=== PATIENT | female | born 1945 | race Caucasian/White ===

== ENCOUNTER → 2024-01-23 12:58 | Outpatient (REF) | payer MEDICARE, SELFPAY | LOC: DHVS 12:58 | PROVIDERS: ATTENDING PHYSICIAN Registered Nurse | DX: I73.9 Peripheral vascular disease, unspecified (principal) | CPT/HCPCS: 93922 ==

== ENCOUNTER → 2024-02-26 13:02 | Outpatient (REF) | payer MEDICARE, SELFPAY | LOC: HWWDC 13:02 | PROVIDERS: ATTENDING PHYSICIAN Family Medicine | DX: Z12.31 Encounter for screening mammogram for malignant neoplasm of breast (principal) | CPT/HCPCS: 77063; 77067 ==

== ENCOUNTER → 2024-03-08 12:45 | Outpatient (REF) | payer MEDICARE, SELFPAY | LOC: HWRCS 12:45 | PROVIDERS: ATTENDING PHYSICIAN Internal Medicine Interventional Cardiology; FAMILY PHYSICIAN Family Medicine | DX: I34.0 Nonrheumatic mitral (valve) insufficiency (principal); Z77.22 Contact with and (suspected) exposure to environmental tobacco smoke (acute) (chronic) | CPT/HCPCS: 71046; 93306 ==

== ENCOUNTER → 2024-03-26 13:22 | Outpatient (REF) | payer MEDICARE, SELFPAY | LOC: HWRAD 13:22 | PROVIDERS: ATTENDING PHYSICIAN Family Medicine | DX: Z13.820 Encounter for screening for osteoporosis (principal); Z78.0 Asymptomatic menopausal state | CPT/HCPCS: 77080 ==

== ENCOUNTER → 2024-04-10 13:34 | Outpatient (REF) | payer MEDICARE, SELFPAY | LOC: HWRAD 13:34 | PROVIDERS: ATTENDING PHYSICIAN Internal Medicine Nephrology; FAMILY PHYSICIAN Family Medicine | DX: N20.0 Calculus of kidney (principal) | CPT/HCPCS: 74176 ==

== ENCOUNTER 2024-04-17 13:38 | Outpatient (RCR) | payer MEDICARE, SELFPAY | END 2024-04-17 23:59 | disposition home or self-care (01) | LOC: RPT 13:38 | PROVIDERS: ATTENDING PHYSICIAN Family Medicine | DX: I89.0 Lymphedema, not elsewhere classified (principal); Z73.6 Limitation of activities due to disability; R26.2 Difficulty in walking, not elsewhere classified | CPT/HCPCS: 97163; 97535; 97760 ==

== ENCOUNTER 2024-05-31 06:25 | Day surgery (SDC) | payer MEDICARE, SELFPAY ==
[2024-05-31 10:27] VITALS: BMI 45.1
[2024-05-31 10:29] VITALS: BP 174/63; BMI 45.1
[2024-05-31 11:50] VITALS: BP 111/50
[2024-05-31 12:01] VITALS: BP 120/63
[2024-05-31 12:15] VITALS: BP 128/91
== END 2024-05-31 12:35 | disposition home or self-care (01) ==
LOC: GI 06:25
PROVIDERS: ATTENDING PHYSICIAN Internal Medicine Gastroenterology
DX: K22.89 Other specified disease of esophagus (principal); K44.9 Diaphragmatic hernia without obstruction or gangrene; K31.89 Other diseases of stomach and duodenum; K31.7 Polyp of stomach and duodenum; R12 Heartburn; R19.7 Diarrhea, unspecified
CPT/HCPCS: 43239; 88305; 88342

== ENCOUNTER 2024-06-06 12:49 | Outpatient (RCR) | payer MEDICARE, SELFPAY | END 2024-06-06 23:59 | disposition home or self-care (01) | LOC: RPT 12:49 | PROVIDERS: ATTENDING PHYSICIAN Family Medicine | DX: I89.0 Lymphedema, not elsewhere classified (principal); Z73.6 Limitation of activities due to disability | CPT/HCPCS: 97535 ==

== ENCOUNTER 2024-06-22 10:11 | Emergency (ER) | payer MEDICARE, SELFPAY ==
[2024-06-22 10:13] VITALS: BP 152/62
--- NOTE | 2024-06-22 10:49 | ED.GENMED ---
History of Present Illness
General
Chief Complaint: Headache
Time Seen by Provider: 06/22/24 10:36
History of Present Illness
History of Present Illness:
Patient presents to the emergency department left-sided headache. Headache has been ongoing for the past month. Pain is tender when she touches the left side of her head. She reports chronic changes in vision which she relates to macular
degeneration. She also has an infected tooth in the left upper molar which she is getting a root canal for this week. Denies fevers or chills. Denies vomiting. Denies head trauma. Denies double vision. Denies jaw claudication
Past History
Past History
ED Past Medical History: Cancer, GERD, HTN and Other (Lung cancer, vulvar melanoma, peptic ulcer disease, diverticulitis with colon resection)
ED Past Surgical History: Bowel resection, Cholecystectomy, Gynecological (vulvectomy with lymph node removal) and Other (Left upper lobectomy,thyroidectomy)
Social History
Tobacco: Non-smoker
Alcohol: None
Drug: None
Personal:
Living: alone
Employment: Retired
Family History
Family History: Other (Sister with palpitations)
Phy Exam
Physical Exam
Physical Exam:
GENERAL APPEARANCE: NAD, well developed/ well nourished
EYES lids/conjunctiva normal
EARS/NOSE/THROAT Mucous membranes moist, tooth number 15 decayed, no palpable abscess appreciated. uvula midline without oral pharyngeal erythema, exudate or swelling
HEAD/NECK tenderness to left temporal region. There is no palpable abnormality. There is no visible abnormality. Normocephalic atraumatic, neck is supple. No carotid bruits
RESPIRATORY respiratory effort normal, speaks in full sentences, no accessory muscle use. Lungs clear to auscultation without rhonchi, wheezes, rales
CARDIAC Regular rate and rhythm, no edema.
ABDOMINAL Soft, ND/NT. No pulsatile masses on exam, rebound tenderness, Shankar sign or pain over Mcburney's point.
MUSCLES/EXTREMITIES No abnormal range of motion, no swelling.
SKIN Warm, pink and dry. No rashes
NEUROLOGICAL cranial nerves II through XII intact. Speech is clear and appropriate. Normal level of consciousness. 5/5 strength in all extremities.
PSYCH Normal mood and affect. Judgement/competence is appropriate
Course
Orders/Labs/Results
Orders:
Orders
06/22/24 10:47
CT Head W/o Iv Contrast Urgent
Comment:
Reason For Exam: headache
06/22/24 10:54
Basic Metabolic Panel Urgent
Complete Blood Count/With Diff Urgent
ESR [Erythrocyte Sed Rate] Urgent
Abnormal Lab Results
06/22/24
10:54
Abs Immat Gran (auto) 0.1 H 10^3/uL
(0-0.05)
Immature Gran % 0.6 H %
(0-0.5)
Lymphocytes % 18.0 L %
(20.5-51.1)
ESR 39 H mm/hour
(0-20)
Carbon Dioxide 31 H mmol/L
(22-30)
BUN 29 H mg/dl
(7-17)
Creatinine 1.4 H mg/dL
(0.6-1.0)
Glucose 121 H mg/dl
(70-99)
06/22/24 10:54
06/22/24 10:54
Vital Signs
Initial and Last Documented VS:
Initial Vital Signs
Temp Pulse Resp BP Pulse Ox
98.5 F 67 18 152/62 98
06/22/24 10:13 06/22/24 10:13 06/22/24 10:13 06/22/24 10:13 06/22/24 10:13
Last Documented Vital Signs
Temp Pulse Resp BP Pulse Ox
98.5 F 67 18 152/62 98
06/22/24 10:13 06/22/24 10:13 06/22/24 10:13 06/22/24 10:13 06/22/24 10:13
*Critical Care Note
Total Time (30-74mins, 75-104mins- exclusive of procedures): Not Applicable
ED Attending Note
ED Attending Note
ED Attending Note:
patient with 1 month of headache to L side of head
no neurologic deficits
doubt SAH given chronicity, no thunderclap
suspect this is possible related to dental infection with radiation of pain
there is no swelling/fevers to suggest spreading abscess
patient on penicillin currently, has close follow up
considered GCA, no jaw claudication, no fevers/constitutional symptoms, ESR <50 making this less likely
instructed to fu with her primary if headache persists after dental repair
-
Portions of this chart may have been created with voice recognition software.� Occasional wrong word or��sound alike� substitutions may have occurred due to the inherent limitations of voice recognition software.
Discharge Plan
Departure
Patient Disposition: Home (Routine Discharge)
Date of Disposition: 06/22/24
Time of Disposition: 11:46
Patient with high blood pressure during this ER visit?: Yes
Discharge Problem:
Headache, Dental infection
Instructions: Headache, Adult (DC)
Prescriptions:
No Action
levothyroxine 175 MCG tablet
175 mcg PO DAILY
metoprolol succinate 50 MG tablet extended release 24 hr
50 mg PO HS
valsartan-hydrochlorothiazide 1 EACH tablet
1 ea PO DAILY
ezetimibe 10 MG tablet
10 mg PO QPM
Co Q-10
1 tab PO DAILY
L.acidoph, paracasei,B. lactis 1 EACH capsule
1 ea PO DAILY Qty: 0
cholecalciferol (vitamin D3) 2,000 UNITS tablet
2,000 units PO DAILY
Alpha Lipoic Acid
1 tab PO DAILY
L-Glutamine 500 MG capsule
500 mg PO DAILY
paricalcitol 1 MCG capsule
1 mcg PO Q48H
Pepcid AC
20 mg HS
Referrals:
Isaac Tinsley, [Family Provider] -
Activity Restrictions/Additional Instructions:
please follow up with your doctor if headaches persist after your dental work this week
we suspect the infected tooth could be causing your headache
return immediately to ER with new or worsening symptoms
Interventions
Interventions:
*Risk Screen - Suicide Last Done: 06/22/24 10:13
*General Assessment Last Done: 06/22/24 10:13
*Neglect/Abuse Screening Last Done: 06/22/24 10:13
ED- Fall Risk Assessment Last Done: 06/22/24 11:04
*ED COVID-19 Vaccine History Last Done: 06/22/24 10:13
*Nursing Disposition Last Done: 06/22/24 11:57
ED- Neurological Assessment Last Done: 06/22/24 11:04
Discharge Date and Time
Discharge Date/Time: 06/22/24 12:03
Print Language: [place]LAND[place]
[2024-06-22 11:11] LABS: % Basophils 0.6 % (0-2); % Eosinophils 2.2 % (0-6); % Immature Granulocytes 0.6 % (0-0.5); % Monocytes 5.4 % (1.7-9.3); % Neutrophils 73.2 % (42.2-75.2); Absolute Basophils 0.1 10^3/uL (0-0.2); Absolute Eosinophils 0.2 10^3/uL (0-0.7); Absolute Immature Granulocytes 0.1 10^3/uL (0-0.05); Absolute Lymphocytes 1.5 10^3/uL (1.2-3.4); Absolute Monocytes 0.5 10^3/uL (0.1-0.6); Absolute Neutrophils 6.2 10^3/uL (1.4-6.5); Hemoglobin 13.7 g/dL (12.0-16.0); Mean Corp Hgb Conc. 33.4 g/dL (33.0-37.0); Mean Corpuscular Volume 89.7 fL (81.0-99.0); Mean Platelet Volume 9.6 fL (7.4-10.4); Nucleated Red Blood Cells % 0 %; Platelet Count 345 10^3/uL (130-400); Red Blood Cell Count 4.57 10^6/uL (4.20-5.40); Red Cell Dist. Width 13.8 % (11.5-14.5); White Blood Cell Count 8.5 10^3/uL (4.8-10.8)
[2024-06-22 11:23] LABS: Blood Urea Nitrogen 29 mg/dl (7-17); Calcium 9.7 mg/dl (8.4-10.2); Carbon Dioxide 31 mmol/L (22-30); Chloride 103 mmol/L (98-107); Glucose 121 mg/dl (70-99); Potassium 4.9 mmol/L (3.5-5.1); Sodium 143 mmol/L (135-145); eGFR 38.75
[2024-06-22 11:32] LABS: Erythrocyte Sed Rate 39 mm/hour (0-20)
== END 2024-06-22 12:03 | disposition home or self-care (01) ==
LOC: EMR 10:11
PROVIDERS: EMERGENCY PHYSICIAN Emergency Medicine; FAMILY PHYSICIAN Family Medicine
DX: R51.9 Headache, unspecified (principal); K04.7 Periapical abscess without sinus; I10 Essential (primary) hypertension; K21.9 Gastro-esophageal reflux disease without esophagitis; K57.92 Diverticulitis of intestine, part unspecified, without perforation or abscess without bleeding; Z98.0 Intestinal bypass and anastomosis status; C51.9 Malignant neoplasm of vulva, unspecified; H35.30 Unspecified macular degeneration; Z85.118 Personal history of other malignant neoplasm of bronchus and lung; Z87.11 Personal history of peptic ulcer disease; Z90.49 Acquired absence of other specified parts of digestive tract; Z90.2 Acquired absence of lung [part of]; Z88.1 Allergy status to other antibiotic agents; Z91.041 Radiographic dye allergy status; Z91.018 Allergy to other foods; Z88.8 Allergy status to other drugs, medicaments and biological substances; Z91.048 Other nonmedicinal substance allergy status
CPT/HCPCS: 99284; 70450; 80048; 85025; 85652

== ENCOUNTER 2024-06-25 13:30 | Outpatient (RCR) | payer MEDICARE, SELFPAY | END 2024-06-25 23:59 | disposition home or self-care (01) | LOC: RPT 13:30 | PROVIDERS: ATTENDING PHYSICIAN Family Medicine | DX: I89.0 Lymphedema, not elsewhere classified (principal); Z73.6 Limitation of activities due to disability | CPT/HCPCS: 97530; 97763 ==

== ENCOUNTER → 2024-07-02 11:16 | Outpatient (REF) | payer MEDICARE, SELFPAY | LOC: HWRAD 11:16 | PROVIDERS: ATTENDING PHYSICIAN Family Medicine; REFERRING PHYSICIAN Internal Medicine Endocrinology, Diabetes & Metabolism | DX: L98.9 Disorder of the skin and subcutaneous tissue, unspecified (principal) | CPT/HCPCS: 76536 ==

== ENCOUNTER → 2024-07-30 17:39 | Outpatient (REF) | payer MEDICARE, SELFPAY | LOC: MRI 17:39 | PROVIDERS: ATTENDING PHYSICIAN Family Medicine | DX: R51.9 Headache, unspecified (principal) | CPT/HCPCS: 70544; 70549; A9585 ==

== ENCOUNTER → 2024-09-12 16:38 | Outpatient (REF) | payer MEDICARE, SELFPAY | LOC: MRI 3T 16:38 | PROVIDERS: ATTENDING PHYSICIAN Internal Medicine Endocrinology, Diabetes & Metabolism; FAMILY PHYSICIAN Family Medicine | DX: R22.1 Localized swelling, mass and lump, neck (principal) | CPT/HCPCS: 70543; A9575 ==

== ENCOUNTER → 2024-11-22 12:36 | Outpatient (REF) | payer MEDICARE, SELFPAY | LOC: HWRAD 12:36 | PROVIDERS: ATTENDING PHYSICIAN Family Medicine | DX: R05.3 Chronic cough (principal) | CPT/HCPCS: 71046 ==

== ENCOUNTER → 2025-01-21 12:18 | Outpatient (REF) | payer MEDICARE, SELFPAY | LOC: HWRAD 12:18 | PROVIDERS: ATTENDING PHYSICIAN Family Medicine | DX: M16.0 Bilateral primary osteoarthritis of hip (principal) | CPT/HCPCS: 73522 ==

== ENCOUNTER 2025-02-13 11:47 | Emergency (ER) | payer MEDICARE, SELFPAY ==
[2025-02-13 11:54] VITALS: BP 176/76
--- NOTE | 2025-02-13 12:39 | ED.GENMED ---
History of Present Illness
General
Chief Complaint: Abdominal Symptoms
Time Seen by Provider: 02/13/25 12:18
History of Present Illness
History of Present Illness:
79-year-old female presents the emergency department for evaluation of suspected constipation. She states for the past 6+ weeks she cannot have bowel movements unless she uses laxative at which point she has heavy volume watery diarrhea. She
denies any rectal pain or pressure at this time. No fevers or chills.
Past History
Past History
ED Past Medical History: Cancer, GERD, HTN and Other (Lung cancer, vulvar melanoma, peptic ulcer disease, diverticulitis with colon resection)
ED Past Surgical History: Bowel resection, Cholecystectomy, Gynecological (vulvectomy with lymph node removal) and Other (Left upper lobectomy,thyroidectomy)
Social History
Tobacco: Non-smoker
Alcohol: None
Drug: None
Personal:
Living: alone
Employment: Retired
Family History
Family History: Other (Sister with palpitations)
Review of Systems
Review of Systems
Allergies reviewed?: Yes
All Other Systems: ROS reviewed and negative except as documented in HPI and ROS
Phy Exam
Physical Exam
Physical Exam:
GEN: Well appearing, NAD, WDWN
HEENT: Oral mucosa moist, no scleral icterus
Cardiac: Regular rate
Lung: No respiratory distress, no tachypnea
MSK: No gross deformity or injuries
Skin: Good color, no pallor or jaundice, no rashes
Neuro: AO x3, moves all extremities freely
Psych: Calm, cooperative
Course
Orders/Labs/Results
Orders:
Orders
02/13/25 12:36
CT Abd/pel Without Iv Or Oral Urgent
Comment:
Reason For Exam: constipation, IV contrast allergy
02/13/25 12:44
Complete Blood Count/No Diff Urgent
Comprehensive Metabolic Panel Urgent
Abnormal Lab Results
02/13/25
12:44
MCHC 32.9 L g/dL
(33.0-37.0)
Potassium 5.3 H mmol/L
(3.5-5.1)
Carbon Dioxide 31 H mmol/L
(22-30)
BUN 22 H mg/dl
(7-17)
Creatinine 1.1 H mg/dL
(0.6-1.0)
Glucose 112 H mg/dl
(70-99)
02/13/25 12:44
02/13/25 12:44
Vital Signs
Initial and Last Documented VS:
Initial Vital Signs
Temp Pulse Resp BP Pulse Ox
98.7 F 72 16 176/76 99
02/13/25 11:54 02/13/25 11:54 02/13/25 11:54 02/13/25 11:54 02/13/25 11:54
Last Documented Vital Signs
Temp Pulse Resp BP Pulse Ox
98.7 F 71 16 166/74 98
02/13/25 11:54 02/13/25 14:12 02/13/25 14:12 02/13/25 14:12 02/13/25 14:12
MDM/Problems Addressed
MDM/Problems Addressed:
Imaging shows no significant stool burden in the colon that would explain her complaint. I have encouraged her to decrease usage of laxatives and improve creased dietary fiber, outpatient follow-up with GI or colorectal surgery
*Pulse Oximetry
SaO2: 99
Oxygen Mode of Delivery: Room air
Patient hypoxic: no
*Critical Care Note
Total Time (30-74mins, 75-104mins- exclusive of procedures): Not Applicable
ED Attending Note
-
Portions of this chart may have been created with voice recognition software.� Occasional wrong word or��sound alike� substitutions may have occurred due to the inherent limitations of voice recognition software.
Discharge Plan
Departure
Patient Disposition: Home (Routine Discharge)
Date of Disposition: 02/13/25
Time of Disposition: 14:11
Patient with high blood pressure during this ER visit?: No
Discharge Problem:
Constipation
Instructions: Constipation, Adult (DC)
Prescriptions:
No Action
levothyroxine 175 MCG tablet
175 mcg PO DAILY
metoprolol succinate 50 MG tablet extended release 24 hr
50 mg PO HS
valsartan-hydrochlorothiazide 1 EACH tablet
1 ea PO DAILY
ezetimibe 10 MG tablet
10 mg PO QPM
Co Q-10
1 tab PO DAILY
L.acidoph,paracasei,B.animalis 1 EACH capsule
1 ea PO DAILY Qty: 0
cholecalciferol (vitamin D3) 2,000 UNITS tablet
2,000 units PO DAILY
Alpha Lipoic Acid
1 tab PO DAILY
L-Glutamine 500 MG capsule
500 mg PO DAILY
paricalcitol 1 MCG capsule
1 mcg PO Q48H
Pepcid AC
20 mg HS
Referrals:
Isaac Tinsley DO [Family Provider, Family Practice]
Interventions
Interventions:
*Risk Screen - Suicide Last Done: 02/13/25 11:54
*General Assessment Last Done: 02/13/25 12:45
*Neglect/Abuse Screening Last Done: 02/13/25 11:54
*ED- Fall Risk Assessment Last Done: 02/13/25 12:45
*ED COVID-19 Vaccine History Last Done: 02/13/25 12:45
*Nursing Disposition Last Done: 02/13/25 14:13
VY-Wwnlbh-Gryohijoxq Assessment Last Done: 02/13/25 12:45
Discharge Date and Time
Discharge Date/Time: 02/13/25 14:13
Print Language: ITALIAN
[2025-02-13 12:51] LABS: Hematocrit 42.9 % (37.0-47.0); Hemoglobin 14.1 g/dL (12.0-16.0); Mean Corp Hgb Conc. 32.9 g/dL (33.0-37.0); Mean Corpuscular Volume 87.0 fL (81.0-99.0); Platelet Count 336 10^3/uL (130-400); Red Cell Dist. Width 13.8 % (11.5-14.5)
[2025-02-13 13:10] LABS: ALT (SGPT) 28 U/L (0-35); AST (SGOT) 28 U/L (14-36); Albumin 4.5 g/dl (3.5-5.0); Alkaline Phosphatase 84 U/L (38-126); Blood Urea Nitrogen 22 mg/dl (7-17); Calcium 9.9 mg/dl (8.4-10.2); Carbon Dioxide 31 mmol/L (22-30); Chloride 105 mmol/L (98-107); Glucose 112 mg/dl (70-99); Potassium 5.3 mmol/L (3.5-5.1); Sodium 141 mmol/L (135-145); Total Protein 8.0 g/dl (6.3-8.2); eGFR 51.43
[2025-02-13 14:12] VITALS: BP 166/74
== END 2025-02-13 14:13 | disposition home or self-care (01) ==
LOC: EMR 11:47
PROVIDERS: Physician Assistant; EMERGENCY PHYSICIAN Emergency Medicine; FAMILY PHYSICIAN Family Medicine
DX: K59.00 Constipation, unspecified (principal); K21.9 Gastro-esophageal reflux disease without esophagitis; I10 Essential (primary) hypertension; C51.9 Malignant neoplasm of vulva, unspecified; Z85.118 Personal history of other malignant neoplasm of bronchus and lung; Z87.11 Personal history of peptic ulcer disease; Z90.49 Acquired absence of other specified parts of digestive tract
CPT/HCPCS: 99284; 74176; 80053; 85027

== ENCOUNTER 2025-03-08 17:20 | Emergency (ER) | payer MEDICARE, SELFPAY ==
[2025-03-08 17:26] VITALS: BP 178/76
[2025-03-08 17:41] LABS: Hematocrit 39.2 % (37.0-47.0); Hemoglobin 13.2 g/dL (12.0-16.0); Mean Corp Hgb Conc. 33.7 g/dL (33.0-37.0); Mean Corpuscular Volume 84.7 fL (81.0-99.0); Nucleated Red Blood Cells % 0 %; Platelet Count 381 10^3/uL (130-400); Red Cell Dist. Width 14.3 % (11.5-14.5)
[2025-03-08 17:56] LABS: ALT (SGPT) 28 U/L (0-35); AST (SGOT) 27 U/L (14-36); Albumin 4.4 g/dl (3.5-5.0); Alkaline Phosphatase 80 U/L (38-126); Blood Urea Nitrogen 44 mg/dl (7-17); Calcium 10.4 mg/dl (8.4-10.2); Carbon Dioxide 28 mmol/L (22-30); Chloride 103 mmol/L (98-107); Glucose 125 mg/dl (70-99); Potassium 4.7 mmol/L (3.5-5.1); Sodium 137 mmol/L (135-145); Total Protein 7.6 g/dl (6.3-8.2); eGFR 46.33
[2025-03-08 18:09] LABS: Troponin I < 0.012 ng/ml
[2025-03-08 20:12] VITALS: BP 188/72
[2025-03-08 20:46] VITALS: BP 180/72
[2025-03-08 21:31] VITALS: BP 175/76
--- NOTE | 2025-03-08 23:17 | ED.GENMED ---
History of Present Illness
General
Chief Complaint: Heart Rate Problem
Source: patient
Exam Limitations: none
Time Seen by Provider: 03/08/25 20:37
Nursing documentation reviewed up to this point in time: agreed with
History of Present Illness
History of Present Illness:
Patient to ED with report of low heart rate. Noticed decreasng heart rate for months. States she was taken off metoprolol by cardiology and placed on Valsartan. Heart rate continues to decline. Reports rate as low as 45 at home while at rest.
Notes occasional lightheadedness. No cp/pressure. Brought to ED by family for eval.
Past History
Past History
ED Past Medical History: Cancer, GERD, HTN and Other (Lung cancer, vulvar melanoma, peptic ulcer disease, diverticulitis with colon resection)
ED Past Surgical History: Bowel resection, Cholecystectomy, Gynecological (vulvectomy with lymph node removal) and Other (Left upper lobectomy,thyroidectomy)
Social History
Tobacco: Non-smoker
Alcohol: None
Drug: None
Personal:
Living: alone
Employment: Retired
Family History
Family History: Other (Sister with palpitations)
Review of Systems
Review of Systems
Allergies reviewed?: Yes
All Other Systems: ROS reviewed and negative except as documented in HPI and ROS
Constitutional: Reports no symptoms
EENT: Reports no symptoms
Respiratory: Reports no symptoms
Cardiac: Reports other (low heart rate)
ABD/GI: Reports no symptoms
: Reports no symptoms
Musculoskeletal: Reports no symptoms
Skin: Reports no symptoms
Neurological: Reports no symptoms
Psychiatric: Reports no symptoms
Phy Exam
General Physical Exam
General Presentation: well appearing and no apparent distress
General age: appears stated age
General Skin: warm and dry
General Habitus: normal
General Mental: alert
Cardiovascular Exam
Cardiovascular Exam: regular rate/rhythm and no edema
Pulmonary Exam
Pulmonary Exam: lungs clear and no respiratory distress
Gastrointestinal Exam
Gastrointestinal Exam: normal bowel sounds, non tender and soft
Musculoskeletal Exam
Musculoskeletal Exam: full ROM and neuro vasc intact
Skin Exam
Skin Exam: normal color, warm/dry and no rash
Psychiatric Exam
Psychiatric Exam: normal mood/affect
Course
Orders/Labs/Results
Orders:
Orders
03/08/25 17:21
EKG [Electrocardiogram (*1)] Urgent
Reason for Study: Bradycardia / Tachycardia
EKG- Treatment ONCE
03/08/25 17:33
Complete Blood Count/With Diff Urgent
Comprehensive Metabolic Panel Urgent
TSH Reflex To Free T4 Urgent
Comment: ADD ON
Troponin I Urgent
03/08/25 20:37
Add On- LAB Urgent
Tests Added?: TSH reflex to free T4
CR Chest - 2 Views Urgent
Comment:
Reason For Exam: pain
Abnormal Lab Results
03/08/25
17:33
WBC 16.4 H 10^3/uL
(4.8-10.8)
Abs Immat Gran (auto) 0.1 H 10^3/uL
(0-0.05)
Absolute Neuts (auto) 14.3 H 10^3/uL
(1.4-6.5)
Immature Gran % 0.7 H %
(0-0.5)
Neutrophils % 87.4 H %
(42.2-75.2)
Lymphocytes % 8.3 L %
(20.5-51.1)
BUN 44 H mg/dl
(7-17)
Creatinine 1.2 H mg/dL
(0.6-1.0)
Glucose 125 H mg/dl
(70-99)
Calcium 10.4 H mg/dl
(8.4-10.2)
03/08/25 17:33
03/08/25 17:33
Vital Signs
Initial and Last Documented VS:
Initial Vital Signs
Temp Pulse Resp BP Pulse Ox
98.5 F 64 16 178/76 98
03/08/25 17:26 03/08/25 17:26 03/08/25 17:26 03/08/25 17:26 03/08/25 17:26
Last Documented Vital Signs
Temp Pulse Resp BP Pulse Ox
98.5 F 53 15 175/76 96
03/08/25 17:26 03/08/25 22:15 03/08/25 22:15 03/08/25 21:31 03/08/25 23:22
*Pulse Oximetry
SaO2: 96
Oxygen Mode of Delivery: Room air
Patient hypoxic: no
*EKG
Rate: bradycardiac (heart rate sinus in mid 40's while at rest. One brief Episode of HR 38)
Rhythm: sinus
*Critical Care Note
Total Time (30-74mins, 75-104mins- exclusive of procedures): Not Applicable
Update Note
Update Note:
Case discussed [facility] Dr. villalobos and dr. reed. EKG sinus bradycardia. BP 170's/70's. No SOB, cp/pressure. Labs stable. TSH normal, Troponin neg. Ok to discharge home tonight. SHe will follow up in office this week. Given instructions on s/s
to return to ED and she is agreeable to plan.
ED Attending Note
-
Portions of this chart may have been created with voice recognition software.� Occasional wrong word or��sound alike� substitutions may have occurred due to the inherent limitations of voice recognition software.
Discharge Plan
Departure
Patient Disposition: Home (Routine Discharge)
Date of Disposition: 03/08/25
Time of Disposition: 22:18
Patient with high blood pressure during this ER visit?: No
Condition: Good
Covid-19: Not Applicable
Discharge Problem:
Bradycardia
Instructions: Bradycardia
Prescriptions:
No Action
levothyroxine 175 MCG tablet
175 mcg PO DAILY
metoprolol succinate 50 MG tablet extended release 24 hr
50 mg PO HS
valsartan-hydrochlorothiazide 1 EACH tablet
1 ea PO DAILY
ezetimibe 10 MG tablet
10 mg PO QPM
Co Q-10
1 tab PO DAILY
L.acidoph,paracasei,B.animalis 1 EACH capsule
1 ea PO DAILY Qty: 0
cholecalciferol (vitamin D3) 2,000 UNITS tablet
2,000 units PO DAILY
Alpha Lipoic Acid
1 tab PO DAILY
L-Glutamine 500 MG capsule
500 mg PO DAILY
paricalcitol 1 MCG capsule
1 mcg PO Q48H
Pepcid AC
20 mg HS
Referrals:
Garland Gibbs MD [Active, Cardiology] - Call in 1-3 days for appt
Isaac Tinsley DO [Family Provider, Family Practice]
Activity Restrictions/Additional Instructions:
Return to the emergency department immediately for any changes in/worsening of your symptoms
Interventions
Interventions:
*Risk Screen - Suicide Last Done: 03/08/25 17:26
*General Assessment Last Done: 03/08/25 22:00
*Neglect/Abuse Screening Last Done: 03/08/25 17:26
*ED- Fall Risk Assessment Last Done: 03/08/25 22:00
*ED COVID-19 Vaccine History Last Done: 03/08/25 22:00
*Nursing Disposition Last Done: 03/08/25 22:50
ED- Cardiac Assessment Last Done: 03/08/25 22:00
ED- Pulmonary Assessment Last Done: 03/08/25 22:00
Discharge Date and Time
Discharge Date/Time: 03/08/25 22:51
Print Language: [place]OH[place]
== END 2025-03-08 22:51 | disposition home or self-care (01) ==
LOC: EMR 17:20
PROVIDERS: EMERGENCY PHYSICIAN Emergency Medicine; FAMILY PHYSICIAN Family Medicine
DX: R00.1 Bradycardia, unspecified (principal); R42 Dizziness and giddiness; I10 Essential (primary) hypertension; Z90.49 Acquired absence of other specified parts of digestive tract; Z87.11 Personal history of peptic ulcer disease; Z85.118 Personal history of other malignant neoplasm of bronchus and lung
CPT/HCPCS: 99285; 71046; 80053; 84443; 84484; 85025; 93005

== ENCOUNTER 2025-03-09 18:50 | Emergency (ER) | payer MEDICARE, SELFPAY ==
[2025-03-09] VITALS (7 sets, daily range): BP systolic 155–223; BP diastolic 70–114
[2025-03-09 19:08] LABS: Hematocrit 41.1 % (37.0-47.0); Hemoglobin 13.4 g/dL (12.0-16.0); Mean Corp Hgb Conc. 32.6 g/dL (33.0-37.0); Mean Corpuscular Volume 86.3 fL (81.0-99.0); Nucleated Red Blood Cells % 0 %; Platelet Count 367 10^3/uL (130-400); Red Cell Dist. Width 14.6 % (11.5-14.5)
[2025-03-09 19:29] LABS: ALT (SGPT) 63 U/L (0-35); AST (SGOT) 52 U/L (14-36); Albumin 4.3 g/dl (3.5-5.0); Alkaline Phosphatase 69 U/L (38-126); Blood Urea Nitrogen 46 mg/dl (7-17); Calcium 10.0 mg/dl (8.4-10.2); Carbon Dioxide 31 mmol/L (22-30); Chloride 101 mmol/L (98-107); Glucose 102 mg/dl (70-99); Potassium 4.6 mmol/L (3.5-5.1); Sodium 138 mmol/L (135-145); Total Protein 7.8 g/dl (6.3-8.2); eGFR 38.51
[2025-03-09 19:40] LABS: Troponin I < 0.012 ng/ml
[2025-03-10] VITALS: BP 206/78
--- NOTE | 2025-03-10 00:21 | ED.GENMED ---
History of Present Illness
<Daisy Kaur DO, Resident - Last Filed: 03/10/25 05:51>
General
Chief Complaint: Chest Pain
Source: patient
Exam Limitations: none
Time Seen by Provider: 03/09/25 23:31
Nursing documentation reviewed up to this point in time: agreed with
History of Present Illness
History of Present Illness:
Patient is a 79-year-old female past medical history of hypertension, lung cancer s/p lobectomy, thyroid cancer s/p thyroidectomy, colon resection, melanoma s/p vulvectomy presenting with elevated blood pressure and low heart rate. Patient was in
the emergency department yesterday for similar complaint. Chest x-ray was negative. EKG showed sinus bradycardia. Patient was discharged home with suggestion of outpatient follow-up with cardiology. Patient returns today because she feels like
she should have been discharged yesterday. Today EKG also shows sinus bradycardia. Patient denies shortness of breath and chest pain. Patient describes occasional dizziness. Patient's industrial commercial groundskeeper recently took her off metoprolol and advised her
to take valsartan 40 in addition to her valsartan hydrochlorothiazide 160 whenever she notices elevated BP. Patient took both valsartan hydrochlorothiazide 160 and losartan 40 this morning. Patient also takes simvastatin and levothyroxine. On
review of systems patient notes chronic constipation. Patient denies all other ROS.
Past History
<Daisy Kaur DO, Resident - Last Filed: 03/10/25 05:51>
Past History
ED Past Medical History: Cancer, GERD, HTN and Other (Lung cancer, vulvar melanoma, peptic ulcer disease, diverticulitis with colon resection)
ED Past Surgical History: Bowel resection, Cholecystectomy, Gynecological (vulvectomy with lymph node removal) and Other (Left upper lobectomy,thyroidectomy)
Social History
Tobacco: Non-smoker
Alcohol: None
Drug: None
Personal:
Living: alone
Employment: Retired
Family History
Family History: Other (Sister with palpitations)
Review of Systems
<Daisy Kaur DO, Resident - Last Filed: 03/10/25 05:51>
Review of Systems
Allergies reviewed?: Yes
All Other Systems: ROS reviewed and negative except as documented in HPI and ROS
Constitutional: Reports no symptoms
EENT: Reports no symptoms
Respiratory: Reports no symptoms
Cardiac: Reports no symptoms
ABD/GI: Reports no symptoms
: Reports no symptoms
Musculoskeletal: Reports no symptoms
Skin: Reports no symptoms
Neurological: Reports dizzy
Endocrine: Reports no symptoms
Hematologic/Lymphatic: Reports no symptoms
Psychiatric: Reports no symptoms
Phy Exam
<Daisy Kaur DO, Resident - Last Filed: 03/10/25 05:51>
General Physical Exam
General Presentation: well appearing and no apparent distress
General age: appears stated age
General Skin: warm and dry
General Habitus: obese
General Mental: alert
Cardiovascular Exam
Cardiovascular Exam: bradycardia
Heart Sounds: normal
Pulmonary Exam
Pulmonary Exam: lungs clear, no respiratory distress, no crackles and no wheezing
Gastrointestinal Exam
Gastrointestinal Exam: normal bowel sounds, non tender and soft
Neurological Exam
Neurological Exam: alert and oriented x3
Skin Exam
Skin Exam: normal color and warm/dry
Psychiatric Exam
Psychiatric Exam: normal mood/affect
Scores
<Daisy Kaur DO, Resident - Last Filed: 03/10/25 05:51>
Heart Score for Chest Pain Patients
STEMI patient?: Not applicable
Course
<Daisy Kaur DO, Resident - Last Filed: 03/10/25 05:51>
Orders/Labs/Results
Orders:
Orders
03/09/25 18:57
EKG [Electrocardiogram (*1)] Urgent
Reason for Study: Vertigo / Dizzy
EKG- Treatment ONCE
03/09/25 19:01
Complete Blood Count/With Diff Urgent
Comprehensive Metabolic Panel Urgent
Troponin I Urgent
03/10/25 00:12
Amlodipine [Norvasc] 5 mg PO NOW STA
Abnormal Lab Results
03/09/25
19:01
WBC 12.0 H 10^3/uL
(4.8-10.8)
MCHC 32.6 L g/dL
(33.0-37.0)
RDW 14.6 H %
(11.5-14.5)
Abs Immat Gran (auto) 0.2 H 10^3/uL
(0-0.05)
Absolute Neuts (auto) 9.6 H 10^3/uL
(1.4-6.5)
Absolute Monos (auto) 0.8 H 10^3/uL
(0.1-0.6)
Immature Gran % 1.3 H %
(0-0.5)
Neutrophils % 80.4 H %
(42.2-75.2)
Lymphocytes % 11.8 L %
(20.5-51.1)
Carbon Dioxide 31 H mmol/L
(22-30)
BUN 46 H mg/dl
(7-17)
Creatinine 1.4 H mg/dL
(0.6-1.0)
Glucose 102 H mg/dl
(70-99)
AST 52 H U/L
(14-36)
ALT 63 H U/L
(0-35)
03/09/25 19:01
03/09/25 19:01
Vital Signs
Initial and Last Documented VS:
Initial Vital Signs
Pulse Resp BP Pulse Ox
56 13 177/85 98
03/09/25 18:55 03/09/25 18:55 03/09/25 18:55 03/09/25 18:55
Last Documented Vital Signs
Temp Pulse Resp BP Pulse Ox
98.1 F 71 21 166/69 97
03/09/25 18:57 03/10/25 03:49 03/10/25 03:49 03/10/25 03:49 03/10/25 03:49
<Camial Celaya, DO - Last Filed: 03/10/25 01:02>
Orders/Labs/Results
Orders:
Orders
03/09/25 18:57
EKG [Electrocardiogram (*1)] Urgent
Reason for Study: Vertigo / Dizzy
EKG- Treatment ONCE
03/09/25 19:01
Complete Blood Count/With Diff Urgent
Comprehensive Metabolic Panel Urgent
Troponin I Urgent
03/10/25 00:12
Amlodipine [Norvasc] 5 mg PO NOW STA
Abnormal Lab Results
03/09/25
19:01
WBC 12.0 H 10^3/uL
(4.8-10.8)
MCHC 32.6 L g/dL
(33.0-37.0)
RDW 14.6 H %
(11.5-14.5)
Abs Immat Gran (auto) 0.2 H 10^3/uL
(0-0.05)
Absolute Neuts (auto) 9.6 H 10^3/uL
(1.4-6.5)
Absolute Monos (auto) 0.8 H 10^3/uL
(0.1-0.6)
Immature Gran % 1.3 H %
(0-0.5)
Neutrophils % 80.4 H %
(42.2-75.2)
Lymphocytes % 11.8 L %
(20.5-51.1)
Carbon Dioxide 31 H mmol/L
(22-30)
BUN 46 H mg/dl
(7-17)
Creatinine 1.4 H mg/dL
(0.6-1.0)
Glucose 102 H mg/dl
(70-99)
AST 52 H U/L
(14-36)
ALT 63 H U/L
(0-35)
03/09/25 19:01
03/09/25 19:01
Vital Signs
Initial and Last Documented VS:
Initial Vital Signs
Pulse Resp BP Pulse Ox
56 13 177/85 98
03/09/25 18:55 03/09/25 18:55 03/09/25 18:55 03/09/25 18:55
Last Documented Vital Signs
Temp Pulse Resp BP Pulse Ox
98.1 F 71 21 166/69 97
03/09/25 18:57 03/10/25 03:49 03/10/25 03:49 03/10/25 03:49 03/10/25 03:49
<Daisy Kaur DO, Resident - Last Filed: 03/10/25 05:51>
MDM/Problems Addressed
Differential Diagnosis Includes:
Hypertension, bradycardia, chronic kidney disease
MDM/Problems Addressed:
Will give patient amlodipine 5 mg and reassess blood pressure.
2: 30 patient's BP improved with amlodipine, now 160s/70s. Will discharge patient with recommendation for follow-up with cardiology tomorrow.
<Daisy Kaur DO, Resident - Last Filed: 03/10/25 05:51>
*Pulse Oximetry
SaO2: 97
Oxygen Mode of Delivery: Room air
Patient hypoxic: no
*EKG
Interpreted by ED Provider?: Yes
Rate: bradycardiac
*Critical Care Note
Total Time (30-74mins, 75-104mins- exclusive of procedures): Not Applicable
ED Attending Note
<Daisy Kaur DO, Resident - Last Filed: 03/10/25 05:51>
-
Portions of this chart may have been created with voice recognition software.� Occasional wrong word or��sound alike� substitutions may have occurred due to the inherent limitations of voice recognition software.
<Camila Celaya DO - Last Filed: 03/10/25 01:02>
ED Attending Note
Patient seen and examined by attending physician: Yes
I performed a history and physical exam of patient and discussed management with resident, I reviewed resident's note and agree with documented findings and plan of care.: Yes
ED Attending Note:
This is a 79-year-old woman with longstanding history of hypertension, right bundle branch block, GERD, kidney stones, chronic renal insufficiency, remote history of thyroid cancer, lung cancer, melanoma.
Had been chronically maintained on valsartan as well as metoprolol for hypertension but more recently over the past 2 months has noted to have bradycardia. Has been following with cardiology and approximately 6 weeks ago metoprolol was
discontinued. Since then blood pressure has been trending up and despite discontinuation of metoprolol she continues with slow heart rate in the 30s to 50s. She has had no episodes of syncope but does admit to 1 brief episode of dizziness a few
weeks ago.
Evaluated in this ED yesterday for similar complaint. Unremarkable ED evaluation. EKG showed sinus bradycardia but no heart block. Moderate hypertension. Labs are unremarkable, troponin negative. Mildly elevated white blood cell count. Case
discussed with cardiology, Dr. Dixon and recommended for follow-up in the office this week.
Patient maintained on valsartan HCTZ 160/25. She is also prescribed valsartan 40 mg to take as needed for hypertension. She did take a dose this morning thus far no improvement in blood pressure.
She returns to the ED with concerned that she requires hospitalization for further evaluation/monitoring. She is concerned that she will need a pacemaker.
Again, she has had no syncopal episodes, no lightheadedness. She denies headache. No chest pain or palpitations.
She is most concerned with her ongoing slow heart rate.
She is also hungry, requesting something to eat.
79-year-old woman appears her stated age, awake and alert, quite chatty, mildly anxious but easily communicative and overall in no acute distress. Moderate systolic hypertension. Monitor shows sinus bradycardia in the 40s to 50s.
Appears euvolemic.
Heart is regular rhythm in the 50s. No murmur no rub.
Lungs are clear to auscultation.
Abdomen is soft without appreciable tenderness.
Extremities: Peripheral pulses are full and equal bilaterally. Nontender.
Patient is overall well in appearance.
EKG shows sinus bradycardia, no acute ST-T wave abnormalities, similar to previous, yesterday.
Labs reveal mildly elevated white blood cell count but improving from yesterday. Chemistries reveal creatinine of 1.4, at patient's baseline. Very minimally elevated LFTs. She continues to have no abdominal pain. Troponin again is negative.
As above, monitor shows sinus bradycardia but there is no episodes of sinus arrest.
Lengthy discussion with patient that at this point there is no indication for pacemaker.
She is noted to be hypertensive but no evidence of endorgan damage.
I suspect her valsartan and will need to be titrated up to 320 mg daily. However additional valsartan taken this morning does not appear to be effective. She has been on valsartan for quite some time and appears that blood pressure has been fairly
well-controlled until more recently when metoprolol was discontinued.
As such we will trial a dose of amlodipine.
Will continue cardiac nurse specialist.
Discharge Plan
Departure
Patient Disposition: Home (Routine Discharge)
Date of Disposition: 03/10/25
Time of Disposition: 02:32
Patient with high blood pressure during this ER visit?: Yes
Discharge Problem:
Hypertension, Bradycardia
Instructions: BLOOD PRESSURE
Prescriptions:
No Action
levothyroxine 175 MCG tablet
175 mcg PO DAILY
metoprolol succinate 50 MG tablet extended release 24 hr
50 mg PO HS
valsartan-hydrochlorothiazide 1 EACH tablet
1 ea PO DAILY
ezetimibe 10 MG tablet
10 mg PO QPM
Co Q-10
1 tab PO DAILY
L.acidoph,paracasei,B.animalis 1 EACH capsule
1 ea PO DAILY Qty: 0
cholecalciferol (vitamin D3) 2,000 UNITS tablet
2,000 units PO DAILY
Alpha Lipoic Acid
1 tab PO DAILY
L-Glutamine 500 MG capsule
500 mg PO DAILY
paricalcitol 1 MCG capsule
1 mcg PO Q48H
Pepcid AC
20 mg HS
Referrals:
Isaac Tinslye DO [Family Provider, Family Practice]
Activity Restrictions/Additional Instructions:
Please call your industrial commercial groundskeeper office tomorrow to schedule a follow-up appointment for blood pressure medication management.
Interventions
Interventions:
*Risk Screen - Suicide Last Done: 03/09/25 18:59
*General Assessment Last Done: 03/09/25 18:59
*Neglect/Abuse Screening Last Done: 03/09/25 18:59
*ED- Fall Risk Assessment Last Done: 03/09/25 18:59
*ED COVID-19 Vaccine History Last Done: 03/09/25 18:59
*Nursing Disposition Last Done: 03/10/25 03:49
ED- Cardiac Assessment Last Done: 03/09/25 19:04
Discharge Date and Time
Discharge Date/Time: 03/10/25 03:51
Print Language: SERBIAN
[2025-03-10] MEDS: NORVASC 5 MG PO (00:22)
[2025-03-10 02:00] VITALS: BP 142/61
[2025-03-10 02:15] VITALS: BP 166/69
[2025-03-10 03:49] VITALS: BP 166/69
== END 2025-03-10 03:51 | disposition home or self-care (01) ==
LOC: EMR 18:50
PROVIDERS: Emergency Medicine; EMERGENCY PHYSICIAN Emergency Medicine; FAMILY PHYSICIAN Family Medicine
DX: I12.9 Hypertensive chronic kidney disease with stage 1 through stage 4 chronic kidney disease, or unspecified chronic kidney disease (principal); N18.9 Chronic kidney disease, unspecified; R00.1 Bradycardia, unspecified; Z85.118 Personal history of other malignant neoplasm of bronchus and lung; Z85.850 Personal history of malignant neoplasm of thyroid; Z90.2 Acquired absence of lung [part of]; E89.0 Postprocedural hypothyroidism
CPT/HCPCS: 99284; 80053; 84484; 85025; 93005

== ENCOUNTER → 2025-04-03 12:59 | Outpatient (REF) | payer MEDICARE, SELFPAY | LOC: HWWDC 12:59 | PROVIDERS: ATTENDING PHYSICIAN Family Medicine | DX: Z12.31 Encounter for screening mammogram for malignant neoplasm of breast (principal) | CPT/HCPCS: 77063; 77067 ==

== ENCOUNTER → 2025-04-10 14:08 | Outpatient (REF) | payer MEDICARE, SELFPAY | LOC: PAVMRI 14:08 | PROVIDERS: ATTENDING PHYSICIAN Psychiatry & Neurology Neurology; FAMILY PHYSICIAN Family Medicine | DX: R41.3 Other amnesia (principal); R42 Dizziness and giddiness | CPT/HCPCS: 70552 ==

== ENCOUNTER → 2025-07-02 16:18 | Outpatient (REF) | payer MEDICARE, SELFPAY | LOC: MRI 3T 16:18 | PROVIDERS: ATTENDING PHYSICIAN Physician Assistant Medical; FAMILY PHYSICIAN Family Medicine | DX: M48.02 Spinal stenosis, cervical region (principal) | CPT/HCPCS: 72141 ==